=== PATIENT | male | born 1965 | race Caucasian/White ===

== ENCOUNTER → 2021-03-06 | Day surgery (SDC) | payer OTHER ==
[~2021-03-06] VITALS: Ht 167.6 cm; Wt 90.7 kg
[~2021-03-06] MED LIST: CRESTOR5 MG PO; CYMBALTA 30MG C30 MG PO; HYDROCODON-ACE1 EAC2 PO; LIPITOR20 MG PO
[2021-03-06 07:38] LABS: HCT 47.3 % (42.0-52.0); HGB 16.1 g/dl (13.2-18.0); MCH 29.8 pg (25.0-31.0); MCV 87.6 fL (78.0-100.0); MPV 9.5 fL (6.0-9.5); RBC 5.4 M/uL (4.70-6.00); RDW 12.6 % (11.5-14.0); WBC 7.4 K/uL (4.0-10.5)
[2021-03-06 07:59] LABS: ALBUMIN 4.1 g/dL (3.4-5.0); BILIRUBIN - TOTAL 0.9 mg/dL (0.2-1.0); BUN/CREAT RATIO (CALC) 13.8 RATIO; CREATININE 0.94 mg/dL (0.67-1.17); GLOBULIN (CALCULATION) 3.2 g/dL; TOTAL PROTEIN 7.3 g/dL (6.4-8.2)
== END | disposition home or self-care (01) ==
LOC: FAS 06:46
PROVIDERS: Surgery
DX: Z12.11 Encounter for screening for malignant neoplasm of colon (principal); D12.0 Benign neoplasm of cecum; Z90.49 Acquired absence of other specified parts of digestive tract
CPT/HCPCS: 36415; 80053; J1610; J2250; J2704; J7120

== ENCOUNTER → 2022-03-06 | Day surgery (SDC) | payer OTHER ==
[~2022-03-06] VITALS: Ht 167.6 cm; Wt 94.4 kg
[2022-03-06 08:55] LABS: HCT 50.3 % (42.0-52.0); HGB 17.1 g/dl (13.2-18.0); MCH 29.5 pg (25.0-31.0); MCV 86.9 fL (78.0-100.0); MPV 9.6 fL (6.0-9.5); RBC 5.79 M/uL (4.70-6.00); RDW 12.9 % (11.5-14.0); WBC 7.3 K/uL (4.0-10.5)
[2022-03-06 09:27] LABS: ALBUMIN 4.3 g/dL (3.4-5.0); BILIRUBIN - TOTAL 0.9 mg/dL (0.2-1.0); GLOBULIN (CALCULATION) 3.2 g/dL; POTASSIUM 4.9 mmol/L (3.5-5.1); TOTAL PROTEIN 7.5 g/dL (6.4-8.2)
== END | disposition home or self-care (01) ==
LOC: FAS 08:24
PROVIDERS: Surgery
DX: Z12.11 Encounter for screening for malignant neoplasm of colon (principal); D12.5 Benign neoplasm of sigmoid colon; E78.5 Hyperlipidemia, unspecified; M19.90 Unspecified osteoarthritis, unspecified site; F32.A Depression, unspecified; Z86.010 Personal history of colon polyps; Z79.899 Other long term (current) drug therapy
CPT/HCPCS: 36415; 80053; J1610; J2250; J2704; J7120